=== PATIENT | male | born 1965 | race African-American/Black ===

== ENCOUNTER 2019-02-18 13:08 | Emergency (ER) | payer SELFPAY ==
[2019-02-18 13:13] VITALS: BP 134/81; PULSE 75; TEMP 98; BMI 24.3
--- NOTE | 2019-02-18 13:14 | PDOC ---
Rapid Medical Evaluation Medical Evaluation: I have performed a brief in-person evaluation of this patient. The patient presents with a chief complaint of: Pain along bottom of R foot since 2 days ago; denies trauma; denies any medical problems; has had pain along bottom of foot for years, but states has been shaving site himself Pertinent physical exam findings: In NAD, hardened callus along plantar aspect ( below 1st and 5th metatarsal heads); no open wound, no drainage, no erythema I have ordered the following: Nothing The patient will proceed to the ED for further evaluation. 02/18/19 13:10
--- NOTE | 2019-02-18 14:21 | PDOC ---
History of Present Illness - General Chief Complaint: Pain Stated Complaint: RT FOOT PAIN Time Seen by Provider: 02/18/19 13:10 - History of Present Illness Initial Comments: 02/18/19 14:13 CHIEF COMPLAINT: foot pain HISTORY OF PRESENT ILLNESS: 53 yo M with no PMH presents to fast track with pain to R foot x 3 days. Patient reports history of callouses to R foot but states he has been "shaving them down" himself which usually provides relief. Patient states the lateral aspect of his R foot "swolled up" over the past 3 days and is now painful to touch or bear weight. Patient denies fever, chills, nausea, vomiting, diarrhea. No recent travel or sick contacts. PAST MEDICAL HISTORY: Denies past medical history FAMILY HISTORY: Denies SOCIAL HISTORY: Denies tobacco, alcohol, illicit drug use. SURGICAL HISTORY: Denies ALLERGIES: No known drug allergies REVIEW OF SYSTEMS General/Constitutional: Denies fever or chills. Denies weakness, weight change. HEENT: Denies change in vision. Denies ear pain or discharge. Denies sore throat. Cardiovascular: Denies chest pain or shortness of breath. Respiratory: Denies cough, wheezing, or hemoptysis. Gastrointestinal: Denies nausea, vomiting, diarrhea or constipation. Denies rectal bleeding. Genitourinary: Denies dysuria, frequency, or change in urination. Musculoskeletal: R foot pain. Denies joint or muscle swelling or pain. Denies neck or back pain. Skin and breasts: Denies rash or easy bruising. Neurologic: Denies headache, vertigo, loss of consciousness, or loss of sensation. Psychiatric: Denies depression or anxiety. PHYSICAL EXAM General Appearance: Well-appearing, appropriately dressed. No apparent distress. HEENT: EOMI, PERRLA, normal ENT inspection, normal voice, TMs normal, pharynx normal. No conjunctival pallor. No photophobia, scleral icterus. Neck: Supple. Trachea midline. No tenderness, rigidity, carotid bruit, stridor , lymphadenopathy, or thyromegaly. Respiratory/Chest: Lungs CTAB. No shortness of breath, chest tenderness, respiratory distress, accessory muscle use. No crackles, rales, rhonchi, stridor , wheezing, dullness Cardiovascular: RRR. S1, S2. No JVD, murmur, bradycardia, tachycardia. Gastrointestinal/Abdominal: Normal bowel sounds. Abdomen soft, non-distended. No tenderness or rebound tenderness. No organomegaly, pulsatile mass, guarding , hernia, hepatomegaly, splenomegaly. Musculoskeletal/Extremities: Two areas of thick callous formation to plantar aspect of foot, one approximately 3 cm in diameter under 1st and 2nd metatarsal , another approximately 4 cm in diameter to lateral aspect of distal R plantar foot with marked TTP. Normal inspection. FROM of all extremities, normal capillary refill. Pelvis Stable. No CVA tenderness. No tenderness to extremities, pedal edema, swelling, erythema or deformity. Integumentary: Appropriate color, dry, warm. No cyanosis, erythema, jaundice or rash Neurologic: admission discharge rn II-XII intact. Fully oriented, alert. Appropriate mood/affect. Motor strength 5/5. No appreciable EOM palsy, facial droop or sensory deficit. Past History - Past Medical History Allergies/Adverse Reactions: Allergies Allergy/AdvReac Type Severity Reaction Status Date / Time No Known Allergies Allergy Verified 02/18/19 13:13 Home Medications: Ambulatory Orders Sulfamethoxazole/Trimethoprim [Bactrim Ds -] 1 tab PO BID #14 tablet 02/18/19 COPD: No - Psycho Social/Smoking Cessation Hx Smoking History: Current every day smoker Number of Cigarettes Smoked Daily: 20 Information on smoking cessation initiated: No *Physical Exam - Vital Signs Last Vital Signs Temp Pulse Resp BP Pulse Ox 98 F 75 18 134/81 98 02/18/19 13:09 02/18/19 13:09 02/18/19 13:09 02/18/19 13:09 02/18/19 13:09 ED Treatment Course - RADIOLOGY Radiology Studies Ordered: Category Date Time Status FOOT-RIGHT [RAD] Stat Radiology 02/18/19 13:47 Ordered Medical Decision Making - Medical Decision Making 02/18/19 14:21 53 yo M with no PMH presents to fast track with pain to R foot x 3 days. -foot xray x-ray wet read suggestive of fluid collection to plantar aspect of foot, possible abscess formation. Given thickness of callous formation patient will need outpatient podiatry f/u. -Bactrim rx Advised patient to take medication as prescribed and follow up with podiatry within the next 2-3 days. Advised patient of signs and symptoms for return to ED. Patient verbalized understanding and agrees to plan. Discharge - Discharge Information Problems reviewed: Yes Clinical Impression/Diagnosis: Abscess of foot Condition: Stable Disposition: HOME - Admission No - Additional Discharge Information Prescriptions: Sulfamethoxazole/Trimethoprim [Bactrim Ds -] 1 tab PO BID #14 tablet - Follow up/Referral Referrals: Micha Pcukett MD [Staff Physician] - - Patient Discharge Instructions Patient Printed Discharge Instructions: DI for Skin Abscess Additional Instructions: You must follow up with podiatry for further treatment of your foot infection. If you develop fever, chills, nausea, vomiting, diarrhea, or any new or worsening symptoms, please return to the ER immediately. - Post Discharge Activity
== END 2019-02-18 14:31 | disposition home or self-care (01) ==
LOC: JERFT 13:08
DX: L02.611 Cutaneous abscess of right foot (principal); L84 Corns and callosities
CPT/HCPCS: 73630-TC-RT-FY; 99281-25

== ENCOUNTER 2021-01-22 13:51 | Emergency (ER) | payer OTHER ==
[2021-01-22 13:57] VITALS: BP 105/66; PULSE 82; TEMP 98; BMI 24.3
[2021-01-22 15:25] LABS: BASO % 0.9 % (0-2.0); EOS % 2.1 % (0-4.5); HEMATOCRIT 34.2 % (35.4-49); LYMPH % 25.1 % (8-40); MCH 21.7 pg (25.7-33.7); MCHC 32.2 g/dl (32.0-35.9); MEAN CELL VOLUME 67.6 fl (80-96); MEAN PLT VOLUME 7.6 fl (7.5-11.1); MONO % 7.1 % (3.8-10.2); NEUT % 64.8 % (42.8-82.8); PLATELET COUNT 232 10^3/uL (134-434); RBC 5.07 M/mm3 (4.00-5.60); RDW 15.6 % (11.9-15.9); WHITE BLOOD COUNT 10.5 K/mm3 (4.0-10.0)
[2021-01-22 15:33] LABS: ALBUMIN 3.6 g/dl (3.4-5.0); CALCIUM 8.8 mg/dL (8.5-10.1)
[2021-01-22 15:34] LABS: BLOOD UREA NITROGEN 19.2 mg/dL (7-18); INR 1.15 (0.83-1.09); PROTHROMBIN TIME (PATIENT) 12.9 SEC (9.7-13.0)
[2021-01-22 15:36] LABS: CREATININE 0.8 mg/dL (0.55-1.3)
[2021-01-22 15:38] LABS: BILIRUBIN,TOTAL 0.4 mg/dL (0.2-1); TOT PROT 6.9 g/dl (6.4-8.2)
[2021-01-22] MEDS ORDERED: SODIUM CHLORIDE 0.9% 500 ML INFUS.BAG IV ONE (16:23)
== END 2021-01-22 20:36 | disposition home or self-care (01) ==
LOC: JER 13:51
DX: K64.9 Unspecified hemorrhoids (principal)
CPT/HCPCS: 36415; 74177-TC; 80053; 82272; 83690; 85025; 85610; 99284-25; Q9967

== ENCOUNTER 2021-10-05 14:43 | Emergency (ER) | payer OTHER ==
[2021-10-05 14:53] VITALS: BP 143/78; PULSE 71; RESP 18; TEMP 98.2; BMI 26.5
== END 2021-10-05 15:17 | disposition home or self-care (01) ==
LOC: JERFT 14:43
DX: L03.012 Cellulitis of left finger (principal)
CPT/HCPCS: 87070; 87076; 87186; 87205; 99283-25

== ENCOUNTER 2023-11-10 22:10 | Emergency (ER) | payer SELFPAY ==
[2023-11-10 22:20] VITALS: BP 118/91; PULSE 95; RESP 20; TEMP 98.2; BMI 21.5
[2023-11-10] MEDS ORDERED: DIPHTH,PERTUSS(ACELL),TET 0.5 ML DISP.SYRIN IM ONE (23:22)
[2023-11-10] MEDS: DIPHTH,PERTUSS(ACELL),TET 0.5 ML DISP.SYRIN IM ONE (23:29)
[2023-11-10 23:33] LABS: HEMATOCRIT 30.3 % (35.4-49); HEMOGLOBIN 9.8 GM/dL (11.7-16.9); LYMPH % 7.7 % (8-40); MCH 20.9 pg (25.7-33.7); MCHC 32.5 g/dl (32.0-35.9); MEAN CELL VOLUME 64.4 fl (80-96); MEAN PLT VOLUME 6.8 fl (7.5-11.1); MONO % 10.1 % (3.8-10.2); NEUT % 80.2 % (42.8-82.8); PLATELET COUNT 218 10^3/uL (134-434); RDW 16.2 % (11.9-15.9); WHITE BLOOD COUNT 8.5 K/mm3 (4.0-10.0)
[2023-11-10 23:45] LABS: POTASSIUM 4.1 mmol/L (3.5-5.1)
[2023-11-10 23:48] LABS: ALBUMIN 3.8 g/dl (3.4-5.0); BLOOD UREA NITROGEN 26.2 mg/dL (7-18)
[2023-11-10] MEDS ORDERED: LIDOCAINE 1%/EPI 1:100000 (20 ML MULTI DOSE VIAL) ONE (23:50)
[2023-11-10 23:51] LABS: CREATININE 0.8 mg/dL (0.55-1.3)
[2023-11-10] MEDS ORDERED: BACITRACIN ZINC 15 GM TUBE TOPICAL OINTMENT ONE (23:52)
[2023-11-10 23:53] LABS: BILIRUBIN,TOTAL 0.4 mg/dL (0.2-1); TOT PROT 6.9 g/dl (6.4-8.2)
[2023-11-10] MEDS: LIDOCAINE 1%/EPI 1:100000 (50 ML MULTI DOSE VIAL) INF ONE (23:58)
[2023-11-11 00:06] LABS: ANISOCYTOSIS 2+; MACROCYTOSIS 0; OVALOCYTE 1+; TARGET CELLS 1+
== END 2023-11-11 00:39 | disposition home or self-care (01) ==
LOC: JER 22:10
PROC: 0HQ1XZZ Repair Face Skin, External Approach (ICD-10-PCS; principal; 2023-11-10)
PROC: 3E0234Z Introduction of Serum, Toxoid and Vaccine into Muscle, Percutaneous Approach (ICD-10-PCS; 2023-11-10)
DX: S01.81XA Laceration without foreign body of other part of head, initial encounter (principal); F10.129 Alcohol abuse with intoxication, unspecified; W18.39XA Other fall on same level, initial encounter; Y92.410 Unspecified street and highway as the place of occurrence of the external cause; Y90.2 Blood alcohol level of 40-59 mg/100 ml; Z23 Encounter for immunization
CPT/HCPCS: 36415; 70450-TC; 70486-TC; 72125-TC; 80053; 80307; 82550; 82553; 82962; 84484; 85025; 90715; 93005; 93010; 99285-25